=== PATIENT | female | born 1995 | race Caucasian/White ===

== ENCOUNTER 2017-09-02 17:41 | Emergency (ER) | payer BC ==
[2016-09-23 09:51] VITALS: BMI 26.4
[~2017-09-02 17:41] MED LIST: IBUPROFEN600 MG PO; PERCOCET 5-3251 TAB PO; PRENATAL COMPLE1 TAB PO
== END 2017-09-02 19:00 | disposition left against medical advice (07) ==
LOC: D.ER 17:41
DX: O26.90 Pregnancy related conditions, unspecified, unspecified trimester (principal); Z3A.00 Weeks of gestation of pregnancy not specified; R10.9 Unspecified abdominal pain

== ENCOUNTER 2017-10-06 04:26 | Emergency (ER) | payer BC ==
[2016-09-23 09:51] VITALS: BMI 26.4
== END 2017-10-06 05:57 | disposition home or self-care (01) ==
LOC: D.ER 04:26
DX: S16.1XXA Strain of muscle, fascia and tendon at neck level, initial encounter (principal); V49.9XXA Car occupant (driver) (passenger) injured in unspecified traffic accident, initial encounter; Y93.89 Activity, other specified; Y92.410 Unspecified street and highway as the place of occurrence of the external cause; S09.90XA Unspecified injury of head, initial encounter; R07.81 Pleurodynia

== ENCOUNTER 2018-03-21 21:11 | Outpatient (CLI) | payer BC ==
[2016-09-23 09:51] VITALS: BMI 26.4
== END 2018-03-21 21:59 | disposition home or self-care (01) ==
LOC: D.LDO 21:11
DX: O26.893 Other specified pregnancy related conditions, third trimester (principal); Z3A.35 35 weeks gestation of pregnancy

== ENCOUNTER → 2018-04-13 18:13 | Outpatient (CLI) | payer BC, MEDICAID ==
[2016-09-23 09:51] VITALS: BMI 26.4
[~2018-04-13 18:13] MED LIST changes: +ACETAMINOPHEN325 MG PO
[2018-04-13 19:07] LABS: APPEARANCE CLEAR (CLEAR); BILIRUBIN NEGATIVE (NEGATIVE); COLOR YELLOW (YELLOW); GLUCOSE NEGATIVE (NEGATIVE); KETONE NEGATIVE (NEGATIVE); NITRITE NEGATIVE (NEGATIVE); PROTEIN NEGATIVE (NEGATIVE); SPECIFIC GRAVITY 1.015 (1.005-1.020); UROBILINOGEN NORMAL (NORMAL)
[2018-04-13 21:27] LABS: BASOPHILS 0.1 % (0-2); EOSINOPHILS 0.2 % (0-7); HEMATOCRIT 33.6 % (36.0-48.0); HEMOGLOBIN 10.7 g/dL (12-16); IMMATURE GRANULOCYTES 0.5 % (0-5); LYMPHOCYTES 5.8 % (15-50); MCHC 31.8 g/dL (31.0-37.0); MCV 91.1 fL (80.0-100.0); MEAN PLATELET VOLUME 9.8 fL (7.4-10.4); MONOCYTES 4.7 % (2-11); NEUTROPHILS 88.7 % (40-80); PLATELET COUNT 170 10x3/uL (130-400); RBC 3.69 10x6/uL (4.00-5.40); RDW 13.8 % (11.5-14.5); WBC 12.8 10x3/uL (4.8-10.8)
[2018-04-13 21:57] LABS: ALBUMIN 2.6 g/dL (3.4-5.0); ALKALINE PHOSPHATASE 206 U/L (46-116); ALT (SGPT) 9 U/L (10-68); AMYLASE - SERUM 87 U/L (25-115); BILIRUBIN - TOTAL 0.98 mg/dL (0.2-1.3); CALC OSMOLALITY 270 mosm/kg (275-300); CALCIUM 8.3 mg/dL (8.5-10.1); CARBON DIOXIDE 25.7 mmol/L (21.0-32.0); CHLORIDE - SERUM 102 mmol/L (98-107); CREATININE - SERUM 0.5 mg/dL (0.6-1.3); GLUCOSE 106 mg/dL (74-106); LIPASE 210 U/L (73-393); POTASSIUM - SERUM 3.6 mmol/L (3.5-5.1); PROTEIN - SERUM 6.7 g/dL (6.4-8.2); SODIUM 136 mmol/L (136-145); UREA NITROGEN 11 mg/dL (7-18); eGFR NON AFRICAN AMERICAN > 90 mL/min (90-120)
== END | disposition home or self-care (01) ==
LOC: D.LDO 18:13
PROVIDERS: Obstetrics & Gynecology
DX: O26.899 Other specified pregnancy related conditions, unspecified trimester (principal)

== ENCOUNTER 2018-04-17 21:24 | Inpatient (IN) | payer BC, MEDICAID ==
[~2018-04-17] VITALS: Ht 165.1 cm; Wt 68.9 kg
--- NOTE | ~2018-04-17 | DS ---
PATIENT:TAI HARDIN :89 MEDICAL RECORD: [id number] DISCHARGE SUMMARY ADMISSION DATE: 04/17/18 DISCHARGE DATE: 04/19/18 DATE OF ADMISSION: 04/17/2018 DATE OF DISCHARGE: 04/19/2018 ADMISSION DIAGNOSIS: at term. DISCHARGE DIAGNOSIS: Mother delivered at term. PROCEDURE: Vaginal delivery without complications. HISTORY OF PRESENT ILLNESS: See the H&P in the chart. SUMMARY OF HOSPITALIZATION: The patient was admitted and delivered vaginally without incident. The patient was doing well at the time of discharge with tviqqub-[id number]-iumuyhpf lochia and adequate pain control with Toradol and Tylenol. The patient has been given standard precautions. Her assessment at discharge reveals a firm uterus below the level of the umbilicus. The patient will follow up in 6 weeks at [facility]. TRANSINT:[id number] Voice Confirmation ID: [id number] DOCUMENT ID: [id number] KATHY ELY MD at 0942 CC: [id number] DICTATION DATE: 06/24/18 08 CONTROL ENGINEER: 06/24/18 0856 DIS IN 04/19/18 [place] [id number] [place] [id number]
--- NOTE | ~2018-04-17 | OP ---
PATIENT NAME: TAI HARDIN MEDICAL RECORD: [id number] :[birth year] LOCATION:[id number] ADMISSION DATE:04/17/18 SURGEON: LOUIS RHOADES MD DATE OF OPERATION: 04/18/2018 PREDELIVERY DIAGNOSIS: at term. POSTDELIVERY DIAGNOSIS: Mother delivered at term. PROCEDURE: Induction of labor with vaginal delivery. ATTENDING: Louis Rhoades MD ANESTHETIC: Continuous lumbar epidural. FINDINGS: Viable male in MAYURI presentation, Apgars were 9 and 9. Weight is still pending at the time of this dictation. First-degree laceration without repair. Placenta spontaneous and intact. ESTIMATED BLOOD LOSS: 300 cc. DISPOSITION: Mother and infant recovered in the room. TRANSINT:[id number] Voice Confirmation ID: [id number] DOCUMENT ID: [id number] LOUIS RHOADES MD at 1504 CC: [id number] DICTATION DATE: 04/18/18 1026 DRYING OVEN ATTENDANT: 04/18/18 1210 [place] [id number]
--- NOTE | ~2018-04-17 | DS ---
PATIENT:TAI HARDIN :[birth year] MEDICAL RECORD: [id number] DISCHARGE SUMMARY ADMISSION DATE: 04/17/18 DISCHARGE DATE: 04/19/18 ADMISSION DATE: 04/17/2018 DISCHARGE DATE: 04/19/2018 ADMISSION DIAGNOSIS: at term. DISCHARGE DIAGNOSIS: Mother delivered at term. PROCEDURE: Vaginal delivery. ATTENDING: Kathy Ely MD HISTORY OF PRESENT ILLNESS: See the H&P in the chart. SUMMARY OF HOSPITALIZATION: The patient was admitted and delivered without incident. By day #2, she was tolerating regular diet, voiding without difficulty, and was discharged home on [id number]-[id number] medications for pain management. The patient will be followed up in the clinic in 6 weeks. Standard precautions have been reviewed. TRANSINT:[id number] Voice Confirmation ID: [id number] DOCUMENT ID: [id number] KATHY ELY MD at 1217 CC: [id number] DICTATION DATE: 07/07/18 1613 CURING FINISHER: 07/07/18 1630 DIS IN 04/19/18 [place] [id number] [place] [address]
[~2018-04-17 21:24] MED LIST changes: -ACETAMINOPHEN325 MG PO
[2018-04-17 22:01] LABS: HEMATOCRIT 33.2 % (36.0-48.0); HEMOGLOBIN 10.7 g/dL (12-16); MCH 29.2 pg (26.0-34.0); MCHC 32.2 g/dL (31.0-37.0); MCV 90.7 fL (80.0-100.0); MEAN PLATELET VOLUME 10.1 fL (7.4-10.4); RBC 3.66 10x6/uL (4.00-5.40); RDW 13.8 % (11.5-14.5); WBC 8.8 10x3/uL (4.8-10.8)
[2018-04-17] MEDS ORDERED: ACETAMINOPHEN325 MG PO (22:01)
[2018-04-17 22:02] VITALS: BP 122/78; Ht 165.1 cm; Wt 68.9 kg
[2018-04-17 22:05] LABS: APPEARANCE CLEAR (CLEAR); BILIRUBIN NEGATIVE (NEGATIVE); COLOR YELLOW (YELLOW); GLUCOSE NEGATIVE (NEGATIVE); KETONE NEGATIVE (NEGATIVE); NITRITE NEGATIVE (NEGATIVE); PROTEIN NEGATIVE (NEGATIVE); SPECIFIC GRAVITY 1.015 (1.005-1.020); UROBILINOGEN NORMAL (NORMAL)
[2018-04-18 15:46] VITALS: BP 119/73
[2018-04-18 18:30] VITALS: BP 124/77
[2018-04-18 19:15] VITALS: BP 133/71
[2018-04-19 06:13] LABS: RAPID PLASMA REAGIN Non Reactive (Non Reactive)
[2018-04-19 08:10] VITALS: BP 105/72
== END 2018-04-19 16:00 | disposition home or self-care (01) | DRG 775 ==
LOC: D.LD 21:24
PROVIDERS: Obstetrics & Gynecology
PROC: 3E033VJ Introduction of Other Hormone into Peripheral Vein, Percutaneous Approach (ICD-10-PCS; principal; 2018-04-18)
PROC: 10E0XZZ Delivery of Products of Conception, External Approach (ICD-10-PCS; 2018-04-18)
DX: O70.0 First degree perineal laceration during delivery (principal); Z3A.00 Weeks of gestation of pregnancy not specified; Z37.0 Single live birth